=== PATIENT | male | born 1985 | race Caucasian/White ===

== ENCOUNTER → 2016-11-16 | Outpatient (CLI) | payer OTHER ==
[~2016-11-16] VITALS: Ht 166.4 cm; Wt 88.5 kg
[~2016-11-16] MED LIST: ATIVAN0.5 MG PO; HYDROCHLOROTHIA25 MG PO; ZESTRIL40 MG PO
== END | disposition home or self-care (01) ==
LOC: AMB 10:37
DX: K22.2 Esophageal obstruction (principal); K29.70 Gastritis, unspecified, without bleeding; B96.81 Helicobacter pylori [H. pylori] as the cause of diseases classified elsewhere; R68.81 Early satiety; R14.0 Abdominal distension (gaseous); R13.10 Dysphagia, unspecified; K20.0 Eosinophilic esophagitis; I10 Essential (primary) hypertension
CPT/HCPCS: 88305; 88342 TC; 93005; J2250

== ENCOUNTER 2017-02-07 14:52 | Emergency (ER) | payer OTHER ==
[~2017-02-07] VITALS: Ht 165.1 cm; Wt 87.1 kg
[2017-02-07 16:12] LABS: HEMATOCRIT 48.4 % (38.0-50.0); MCH 29.4 PG (29.0-34.0); MCHC 34.9 G/DL (30.0-36.0); MCV 84.2 FL (86-99); MEAN PLAT.VOLUME 10.8 uM^3 (9.0-12.4); PLATELET COUNT 327 K/uL (156-360); RBC DIS.WIDTH-CV 11.9 % (11.8-14.6); RBC DIS.WIDTH-SD 35.7 % (39-53); RED BLOOD COUNT 5.75 M/uL (4.00-5.50); WHITE BLOOD COUNT 8.4 K/uL (4.1-10.2)
[2017-02-07 16:24] LABS: CHLORIDE 102 mEq/L (99-109); POTASSIUM 4.6 mEq/L (3.7-5.4); SODIUM 137 mEq/L (136-147)
[2017-02-07 16:26] LABS: GLUCOSE 97 mg/dL (70-99)
[2017-02-07 16:28] LABS: ANION GAP 11 MEQ/L (2-14); TOTAL BILIRUBIN 0.7 mg/dL (0.0-1.0)
[2017-02-07 16:30] LABS: ALKALINE PHOSPHATASE 70 IU/L (3-129); GFR ESTIMATE (CALCULATED) > 59 mL/min/
[2017-02-07 16:31] LABS: UREA NITROGEN (BUN) 13 mg/dL (9-23)
[2017-02-07] MEDS ORDERED: OMEPRAZOLE40 M1 PO (18:21)
[2017-02-07 18:35] VITALS: BP 166/113
== END 2017-02-07 18:42 | disposition home or self-care (01) ==
LOC: EME 14:52
DX: R79.89 Other specified abnormal findings of blood chemistry (principal); I10 Essential (primary) hypertension
CPT/HCPCS: 80053; 81003; 85027; 99281; 99284